=== PATIENT | female | born 1955 | race African-American/Black ===

== ENCOUNTER 2023-04-28 15:20 | Emergency (ER) | payer MEDICARE, MEDICAID ==
[~2023-04-28] VITALS: Ht 165.1 cm; Wt 61.0 kg
[2023-04-28 15:39] VITALS: O2SAT 98
[2023-04-28 16:10] LABS: BASOPHILS % 1.1 % (0.0-2.0); DIFFERENTIAL COMMENT 0; EOSINOPHILS % 0.1 % (0.0-5.0); HEMATOCRIT. 40.1 % (36.0-48.0); HEMOGLOBIN. 12.1 g/dL (12.0-16.0); LYMPHOCYTES % 16.2 % (20.0-50.0); MEAN CORPUSCULAR HEMOGLOBIN 23.8 pg (28.0-32.0); MEAN CORPUSCULAR HGB CONC 30.3 g/dL (31.0-37.0); MEAN CORPUSCULAR VOLUME 78.5 fL (81.0-99.0); MEAN PLATELET VOLUME 8.7 fl (7.4-10.4); MONOCYTES % 14.1 % (2.0-8.0); NEUTROPHILS % 68.5 % (40.0-76.0); PLATELET 261 x1000/uL (130-400); RED CELL DISTRIBUTION WIDTH 17.3 % (11.6-14.6); WHITE BLOOD COUNT 6.7 x1000/uL (4.5-11.0)
[2023-04-28 16:19] LABS: D-DIMER 1.47 mg/L FEU (<0.50); INR 1.1; PROTHROMBIN TIME 12.1 sec (9.6-11.0)
[2023-04-28 16:22] LABS: ALANINE AMINOTRANSFERASE 113 IU/L (10-49); ALBUMIN 3.7 g/dL (3.2-4.8); ASPARTATE AMINOTRANSFERASE 164 IU/L (<34); BILIRUBIN TOTAL 1.1 mg/dL (0.1-1.0); CALCIUM 9.1 mg/dL (8.7-10.4); CARBON DIOXIDE 20 mEq/L (21-32); CHLORIDE 102 mEq/L (98-107); CREATININE 0.9 mg/dL (0.6-1.0); GLUCOSE 108 mg/dL (70-105); PROTEIN TOTAL 8.3 g/dL (6.0-8.3); SODIUM 133 mEq/L (136-145); UREA NITROGEN BLOOD 32 mg/dL (9-23)
[2023-04-28 17:06] LABS: TROPONIN I HIGH SENSITIVITY 532 ng/L (3.0-34)
[2023-04-28] MEDS: ENOXAPARIN 60MG/0.6ML SYR SUBCUT SCH (18:30)
[2023-04-28] MEDS ORDERED: ASPIRIN 325MG EC TABLET PO NR (18:30)
[2023-04-29 02:07] LABS: TROPONIN I HIGH SENSITIVITY 487 ng/L (3.0-34)
[2023-04-29] MEDS ORDERED: ASPIRIN 325MG EC TABLET PO NR (06:15)
[2023-04-29] MEDS: ENOXAPARIN 60MG/0.6ML SYR SUBCUT SCH (06:19)
[2023-04-29 09:09] VITALS: BP 126/85; PULSE 100; RESP 16; TEMP 97.8
== END 2023-04-29 12:20 | disposition admitted as inpatient to this hospital (09) ==
LOC: ER 15:20 → EDBEDREQ 15:54 → EDBEDREQTM 18:23 → ER 04-29 12:20
DX: R06.02 Shortness of breath (principal); I10 Essential (primary) hypertension
CPT/HCPCS: 80053; 83880; 85025; 85379; 85610; 84484; 36415; 71045; 99284; 96372; J1650; Z7610